=== PATIENT | female | born 1970 | race Caucasian/White ===

== ENCOUNTER 2018-09-17 20:36 | Emergency (ER) | payer SELFPAY ==
[~2018-09-17] VITALS: Ht 170.2 cm; Wt 55.8 kg
[~2018-09-17 20:36] MED LIST: ALPRAZOLAM1 MG PO; BENTYL20 MG PO; CARAFATE1 GM PO; CEFDINIR125 MG/5 M PO; CITALOPRAM HBR10 MG PO; ENTOCORT EC3 M1 PO; ERY-TAB333 MG PO; HYOSCYAMINE PO; METAXALONE800 MG PO; NEXIUM40 MG PO; NORCO 10-325 T1 EACH PO; PREDNISONE20 MG PO; PREVACID30 M2 PO; PROGESTERONE; PROMETHAZINE HC25 M1 PO; TYLENOL WITH C1 EACH PO; Z.0.AMITRIPTYLINE H1 PO; Z.0.APRISO0.375 GM; Z.0.FLAGYL500 MG PO; Z.0.HYOMAX-SL0.125 M; Z.0.LEVAQUIN500 MG PO; Z.0.NORCO 5-325 TA1 PO; Z.0.PHENERGAN SUPP25 RC; Z.0.PHENERGAN25 M1 PO; Z.0.PROTONIX40 MG; Z.0.REGLAN5 MG PO; Z.0.ZOFRAN4 MG PO
--- OUTSIDE RECORDS SUMMARY | 2018-09-17 20:40 | XMS REPORT | Continuity of Care Document ---
Author Author [facility] [employer] [facility] Interface Address Unknown Phone Unavailable Problems Problem Status Onset Date Classification Date Reported Comments Source LAB Active 04/22/2014 [facility] GASTRIC PARESIS, N/V AND DEHYDRATION Active 07/08/2013 [facility] History of hysterectomy Resolved 09/09/2003 Problem 04/25/2014 [facility] Dumping syndrome Active Problem 04/25/2014 [facility] Medications Medication Details Route Status Patient Instructions Ordering Provider Order Date Source Protonix 40 mg, 1 tab, Route: PO, Drug form: ECTAB, Before Dinner, Start date: 07/10/13 16:30:00, Duration: 30 day, Stop date: 08/08/13 16:30:00Tablet should not be chewed or crushed. (Same as: Protonix) Inactive Blas 07/10/2013 [facility] Phenergan + Sodium Chloride 0.9% IV 50 mL 12.5 mg, 0.5 mL, Route: IVPB, Q6H, Dosing Weight 61.364, kg, PRN Nausea & Vomiting, Start date: 07/09/13 23:16:00, Duration: 30 day, Stop date: 08/08/13 23:15:00Do not give IV push. (Same as: Phenergan) No Longer Active Bill 07/10/2013 [facility] morphine Sulfate 1 mg, 0.5 mL, Route: IV, Drug form: INJ, Q3H, Dosing Weight 61.364, kg, PRN as needed for pain, Start date: 07/09/13 15:50:00, Duration: 30 day, Stop date: 08/08/13 15:49:00(Same as:MORPhine Sulfate) No Longer Active Ahmed 07/09/2013 [facility] Phenergan + Sodium Chloride 0.9% IV 50 mL 12.5 mg, 0.5 mL, Route: IVPB, Drug form: INJ, ONCE, Dosing Weight 61.364, kg, PRN Nausea & Vomiting, Priority: STAT, Start date: 07/09/13 13:00:00, Stop date: 08/08/13 14:59:00Do not give IV push. (Same as: Phenergan) Inactive Ahmed 07/09/2013 [facility] [place] 7.5/325 oral tablet 1 tab, PO, Q4H, PRN, for pain, Substitution Allowed, Maintenance, TAB No Longer Active 07/08/2013 [facility] promethazine 25 mg oral tablet 25 mg, 1 tab, PO, Q6H, PRN, 15 tab, Nausea & Vomiting, Substitution Allowed, TAB Active 07/08/2013 [facility] Nexium 40 mg oral delayed release capsule 40 mg, 1 cap, PO, Daily, 30 cap, Substitution Allowed Active 07/08/2013 [facility] Protonix 40 mg, Route: IVP, Drug form: INJ, Before Dinner, Dosing Weight 63.182, kg, Patient is NPO, Start date: 07/08/13 16:30:00, Duration: 30 day, Stop date: 08/06/13 16:30:00For IV push reconstitute with 10 ml 0.9% sodium chloride and push over 2 minutes. (Same as: Protonix) No Longer Active [facility] 07/08/2013 [facility] Flagyl 500 mg, 100 mL, Route: IVPB, Drug form: INJ, ABXQ6H, Dosing Weight 61.364, kg, Start date: 07/08/13 16:00:00, Duration: 30 day, Stop date: 08/07/13 10:00:00(Same as: Flagyl) Avoid alcohol. No Longer Active [facility] 07/08/2013 [facility] erythromycin + Sodium Chloride 0.9% IV 100 mL 200 mg, Route: IV, [id number], Dosing Weight 61.364, kg, Start date: 07/08/13 14:00:00, Duration: 30 day, Stop date: 08/06/13 21:30:00(Same as: erythromycin lactobionate) No Longer Active Bill 07/08/2013 [facility] Zofran 4 mg, 2 mL, Route: IVP, Drug form: INJ, Q6H, PRN Nausea & Vomiting, Start date: 07/08/13 11:18:00, Duration: 30 day, Stop date: 08/07/13 11:17:00(Same as: Zofran) No Longer Active Figueredo 07/08/2013 [facility] normal saline 0.9% IV 1,000 mL 1,000 mL, Rate: 100 ml/hr, Infuse over: 10 hr, Route: IV, Dosing Weight 63.182 kg, Total Volume: 1,000, Start date: 07/08/13 10:43:00, Duration: 30 day, Stop date: 08/07/13 10:42:00 No Longer Active Blas 07/08/2013 [facility] Allergies, Adverse Reactions, Alerts Substance Category Reaction Severity Reaction type Status Date Reported Comments Source NSAIDs drug allergy Allergy [facility] Immunizations Immunization Date Given Site Status Last Updated Comments Source Results Order Name Results Value Reference Range Date Interpretation Comments Source TOXICOLOGY Phenytoin Free 1.38 ug/ml 1.00 - 2.00 04/22/2014 [facility] CHEMISTRY Globulin 3.1 g/dL 2.0 - 4.0 07/09/2013 Normal [facility] CHEMISTRY AGAP 12.5 meq/L 10.0 - 20.0 07/09/2013 Normal [facility] CHEMISTRY B/C Ratio 10 6 - 25 07/09/2013 Normal [facility] CHEMISTRY A/G Ratio 1.1 0.7 - 1.6 07/09/2013 Normal [facility] CHEMISTRY eGFR 108 mL/min/1.73m2 07/09/2013 1Result Comment: The eGFR is calculated using the CKD-EPI formula. In most young, healthy individuals the eGFR will be >90 mL/min/1.73m2. The eGFR declines with age. An eGFR of 60-89 may be normal in some populations, particularly the elderly, for whom the CKD-EPI formula has not been extensively validated. Use of the eGFR is not recommended in the following populations: Individuals with unstable creatinine concentrations, including patients and those with serious co-morbid conditions. Patients with extremes in muscle mass or diet. The data above are obtained from the National Kidney Disease Education Program (NKDEP) which additionally recommends that when the eGFR is used in patients with extremes of body mass index for purposes of drug dosing, the eGFR should be multiplied by the estimated BMI. [facility] CHEMISTRY ASPARTATE TRANSAMINASE 18 unit/L 0 - 37 07/09/2013 Normal [facility] CHEMISTRY Creatinine Lvl 0.7 mg/dL 0.5 - 1.4 07/09/2013 Normal [facility] CHEMISTRY BUN 7 mg/dL 7 - 22 07/09/2013 Normal [facility] CHEMISTRY Glucose Lvl 97 mg/dL 70 - 99 07/09/2013 Normal 2Interpretive Data: Adult reference range values reflect the clinical guidelines of the [place] [employer]. [facility] CHEMISTRY Alk Phos 84 unit/L 39 - 136 07/09/2013 Normal [facility] CHEMISTRY Bili Total 0.2 mg/dL 0.2 - 1.3 07/09/2013 Normal [facility] CHEMISTRY ALANINE AMINOTRANSFERASE 13 unit/L 0 - 65 07/09/2013 Normal [facility] CHEMISTRY CO2 26 meq/L 24 - 32 07/09/2013 Normal [facility] CHEMISTRY Albumin Lvl 3.4 g/dL 3.5 - 5.0 07/09/2013 LOW [facility] CHEMISTRY Calcium Lvl 8.6 mg/dL 8.5 - 10.5 07/09/2013 Normal [facility] CHEMISTRY Total Protein 6.5 g/dL 6.4 - 8.4 07/09/2013 Normal [facility] CHEMISTRY Sodium Lvl 145 meq/L 135 - 145 07/09/2013 Normal [facility] CHEMISTRY Potassium Lvl 3.5 meq/L 3.5 - 5.1 07/09/2013 Normal [facility] CHEMISTRY Chloride Lvl 110 meq/L 95 - 109 07/09/2013 HI [facility] HEMATOLOGY MPV 8.2 fL 7.4 - 10.4 07/09/2013 Normal [facility] HEMATOLOGY Platelet 229 K/CMM 133 - 450 07/09/2013 Normal [facility] HEMATOLOGY RDW 13.4 % 11.5 - 14.5 07/09/2013 Normal [facility] HEMATOLOGY Hct 32.2 % 36.0 - 48.0 07/09/2013 LOW [facility] HEMATOLOGY MCV 96.2 fL 81.0 - 99.0 07/09/2013 Normal [facility] HEMATOLOGY MCH 31.4 pg 27.0 - 31.0 07/09/2013 HI [facility] HEMATOLOGY RBC X 10x6 3.35 M/CMM 4.20 - 5.40 07/09/2013 LOW [facility] HEMATOLOGY Hgb 10.5 g/dL 12.0 - 16.0 07/09/2013 LOW [facility] HEMATOLOGY MCHC 32.7 g/dL 32.0 - 36.0 07/09/2013 Normal [facility] HEMATOLOGY WBC X 10x3 9.5 K/CMM 3.7 - 10.4 07/09/2013 Normal [facility] HEMATOLOGY Monocytes # 1.0 K/CMM 0.0 - 0.8 07/09/2013 HI [facility] HEMATOLOGY Lymphocytes # 2.9 K/CMM 1.0 - 5.5 07/09/2013 Normal [facility] HEMATOLOGY Eosinophils # 0.0 K/CMM 0.0 - 0.5 07/09/2013 Normal [facility] HEMATOLOGY Basophils # 0.0 K/CMM 0.0 - 0.2 07/09/2013 Normal [facility] HEMATOLOGY Monocytes 10.2 % 2.0 - 12.0 07/09/2013 Normal [facility] HEMATOLOGY Eosinophils 0.2 % 0.0 - 4.0 07/09/2013 Normal [facility] HEMATOLOGY Basophils 0.3 % 0.0 - 1.0 07/09/2013 Normal [facility] HEMATOLOGY Lymphocytes 30.8 % 20.0 - 40.0 07/09/2013 Normal [facility] HEMATOLOGY Segs-Bands # 5.6 K/CMM 1.5 - 8.1 07/09/2013 Normal [facility] HEMATOLOGY Segs 58.5 % 45.0 - 75.0 07/09/2013 Normal [facility] HEMATOLOGY INR 0.93 0.85 - 1.17 07/08/2013 Normal 3Interpretive Data: RECOMMENDED RANGES FOR PROTIME INR: 2.0-3.0 for most medical and surgical thromboembolic states. 2.5-3.5 for artificial heart valves and recurrent embolism. INR SHOULD BE USED ONLY FOR PATIENTS ON STABLE ANTICOAGULANT THERAPY. [facility] HEMATOLOGY PROTIME 12.4 s 12.0 - 14.7 07/08/2013 Normal [facility] Vital Signs Vital Sign Value Date Comments Source Diastolic (mm Hg) 82 07/10/2013 [facility] Systolic (mm Hg) 127 07/10/2013 [facility] Respitory Rate 18 07/10/2013 [facility] Heart Rate 68 07/10/2013 [facility] Temperature Oral (F) 98.5 F 07/10/2013 [facility] Heart Rate 68 07/10/2013 [facility] Respitory Rate 18 07/10/2013 [facility] Temperature Oral (F) 98.2 F 07/10/2013 [facility] Systolic (mm Hg) 114 07/10/2013 [facility] Diastolic (mm Hg) 71 07/10/2013 [facility] Diastolic (mm Hg) 88 07/10/2013 [facility] Systolic (mm Hg) 136 07/10/2013 [facility] Respitory Rate 18 07/10/2013 [facility] Heart Rate 72 07/10/2013 [facility] Temperature Oral (F) 99.5 F 07/10/2013 [facility] Weight 61.364 07/08/2013 [facility] Height 170.18 cm 07/08/2013 [facility] Encounters Location Location Details Encounter Type Encounter Number Reason For Visit Attending Provider ADM Date DC Date Status Source [facility] [id number] GASTRIC PARESIS, N/V AND DEHYDRATION RAFA FIGUEREDO 07/08/2013 07/10/2013 Active [facility] Patient [id number] Blayne Shah 04/22/2014 04/23/2014 [facility] Procedures Procedure Code Date Perfomer Comments Source
--- OUTSIDE RECORDS SUMMARY | 2018-09-17 20:40 | XMS REPORT | Summary of Care ---
Author Organization Unknown Address Unknown Phone Unavailable Encounter [facility] Carola_hector(PATO) [id number] Date(s): 04/22/14 - 04/22/[address] Discharge Disposition: Home Physician Attending: Blayne Shah MD Reason for Visit LAB Problem List Condition Effective Dates Status Health Status Informant Dumping Active syndrome(Confirmed) History of 09/09/03 Resolved hysterectomy(Confirm ed) Allergies, Adverse Reactions, Alerts Substance Reaction Severity Status NSAIDs Active Medications No data available for this section Results TOXICOLOGY Most recent to 1 oldest [Reference Range]: Phenytoin Free 1.38 ug/ml [1.00-2.00 ug/ml] (04/22/14 6:30 AM) Medications Administered During Your Visit No data available for this section Immunizations No data available for this section
--- OUTSIDE RECORDS SUMMARY | 2018-09-17 20:40 | XMS REPORT ---
[facility] Address Unknown Phone Unavailable Care Team Providers Care Psych Np Name Role Phone Unavailable Unavailable Payers Payer Name Policy Type Policy Number Effective Date Expiration Date Problems This patient has no known problems. Allergies, Adverse Reactions, Alerts Allergy Name Allergy Type Status Severity Reaction(s) Onset Date Inactive Date Treating Clinician Comments NSAIDS (Non-Steroidal Anti-Inflamma DA Active AL 2018-06-14 00:00:00 aspirin DA Active AL 2018-06-14 00:00:00 zolpidem DA Active 2018-06-14 00:00:00 meperidine DA Active SV 2018-06-14 00:00:00 ondansetron DA Active MO 2018-06-14 00:00:00 NSAIDS (Non-Steroidal Anti-Inflamma DA Active AL 2018-05-16 00:00:00 aspirin DA Active AL 2018-05-16 00:00:00 zolpidem DA Active SV 2018-05-16 00:00:00 meperidine DA Active SV 2018-05-16 00:00:00 ondansetron DA Active MO 2018-05-16 00:00:00 NSAIDS (Non-Steroidal Anti-Inflamma DA Active AL 2018-04-30 00:00:00 aspirin DA Active AL 2018-04-30 00:00:00 zolpidem DA Active SV 2018-04-30 00:00:00 meperidine DA Active SV 2018-04-30 00:00:00 ondansetron DA Active MO 2018-04-30 00:00:00 Medications This patient has no known medications. Encounters Start Date/Time End Date/Time Encounter Type Admission Type Attending [facility] Care Facility Care Department Encounter ID 2018-02-25 13:16:05 2018-02-25 13:16:05 Outpatient [facility] [id number] 2018-01-10 00:00:00 2018-01-10 00:00:00 Outpatient [facility] [id number] 2018-01-03 00:00:00 2018-01-03 00:00:00 Outpatient [facility] [id number] 2018-01-03 00:00:00 2018-01-03 00:00:00 Outpatient [facility] [id number] 2018-01-02 00:00:00 2018-01-02 00:00:00 Outpatient [facility] [id number] 2017-12-27 00:00:00 2017-12-27 00:00:00 Outpatient [facility] [id number] 2017-12-26 00:00:00 2017-12-26 00:00:00 Outpatient [facility] [id number] 2017-12-20 00:00:00 2017-12-20 00:00:00 Outpatient [facility] [id number] 2017-12-19 00:00:00 2017-12-19 00:00:00 Outpatient [facility] [id number] 2017-12-13 00:00:00 2017-12-13 00:00:00 Outpatient [facility] [id number] 2017-12-12 00:00:00 2017-12-12 00:00:00 Outpatient [facility] [id number] 2017-12-06 00:00:00 2017-12-06 00:00:00 Outpatient [facility] [id number] 2017-12-03 13:19:51 2017-12-03 13:19:51 Outpatient [facility] [id number] 2017-11-29 00:00:00 2017-11-29 00:00:00 Outpatient [facility] [id number] 2017-11-28 00:00:00 2017-11-28 00:00:00 Outpatient [facility] [id number] 2017-11-20 13:55:34 2017-11-20 13:55:34 Outpatient [facility] [id number] 2017-09-27 13:46:19 2017-09-27 13:46:19 Outpatient [facility] [id number] 2017-08-08 00:00:00 2017-08-08 00:00:00 Outpatient [facility] [id number] 2017-07-08 08:56:16 2017-07-08 08:56:16 Outpatient [facility] [id number] 2017-07-05 09:32:15 2017-07-05 09:32:15 Outpatient [facility] [id number] 2017-05-08 00:00:00 2017-05-08 00:00:00 Outpatient [facility] [id number]
--- OUTSIDE RECORDS SUMMARY | 2018-09-17 20:40 | XMS REPORT | CCD ---
Author Author Auto Generated Organization [facility] Address Unknown Phone Unavailable Care Team Providers Care Record Producer Name Role Phone Jluis Figueredo RP Allergies, Adverse Reactions, Alerts Substance Reaction Status NSAIDs Active Problem List Condition Effective Dates Status Dumping syndrome Active History of hysterectomy 09/09/2003 Resolved Medications Medication Instructions Start Date End Date Status Zofran 4 mg, 2 mL, Route: IVP, Drug form: 07/08/2013 07/10/2013 Discontinued INJ, Q6H, PRN Nausea & Vomiting, Start date: 07/08/13 11:18:00, Duration: 30 day, Stop date: 08/07/13 11:17:00(Same as: Zofran) normal saline 0.9% 1,000 mL, Rate: 100 ml/hr, Infuse 07/08/2013 07/10/2013 Discontinued IV 1,000 mL over: 10 hr, Route: IV, Dosing Weight 63.182 kg, Total Volume: 1,000, Start date: 07/08/13 10:43:00, Duration: 30 day, Stop date: 08/07/13 10:42:00 Flagyl 500 mg, 100 mL, Route: IVPB, Drug 07/08/2013 07/10/2013 Discontinued form: INJ, ABXQ6H, Dosing Weight 61.364, kg, Start date: 07/08/13 16:00:00, Duration: 30 day, Stop date: 08/07/13 10:00:00(Same as: Flagyl) Avoid alcohol. Phenergan + Sodium 12.5 mg, 0.5 mL, Route: IVPB, Q6H, 07/09/2013 07/10/2013 Discontinued Chloride 0.9% IV 50 Dosing Weight 61.364, kg, PRN mL Nausea & Vomiting, Start date: 07/09/13 23:16:00, Duration: 30 day, Stop date: 08/08/13 23:15:00Do not give IV push. (Same as: Phenergan) morphine Sulfate 1 mg, 0.5 mL, Route: IV, Drug form: 07/09/2013 07/10/2013 Discontinued INJ, Q3H, Dosing Weight 61.364, kg, PRN as needed for pain, Start date: 07/09/13 15:50:00, Duration: 30 day, Stop date: 08/08/13 15:49:00(Same as:MORPhine Sulfate) Protonix 40 mg, 1 tab, Route: PO, Drug form: 07/10/2013 07/10/2013 Canceled ECTAB, Before Dinner, Start date: 07/10/13 16:30:00, Duration: 30 day, Stop date: 08/08/13 16:30:00Tablet should not be chewed or crushed.(Same as: Protonix) [place] 7.5/325 oral 1 tab, PO, Q4H, PRN, for pain, 07/08/2013 07/10/2013 Discontinued tablet Substitution Allowed, Maintenance, TAB promethazine 25 mg 25 mg, 1 tab, PO, Q6H, PRN, 15 tab, 07/08/2013 Ordered oral tablet Nausea & Vomiting, Substitution Allowed, TAB Nexium 40 mg oral 40 mg, 1 cap, PO, Daily, 30 cap, 07/08/2013 Ordered delayed release Substitution Allowed capsule Phenergan + Sodium 12.5 mg, 0.5 mL, Route: IVPB, Drug 07/09/2013 07/09/2013 Completed Chloride 0.9% IV 50 form: INJ, ONCE, Dosing Weight mL 61.364, kg, PRN Nausea & Vomiting, Priority: STAT, Start date: 07/09/13 13:00:00, Stop date: 08/08/13 14:59:00Do not give IV push. (Same as: Phenergan) erythromycin + 200 mg, Route: IV, [id number], Dosing 07/08/2013 07/10/2013 Discontinued Sodium Chloride 0.9% Weight 61.364, kg, Start date: IV 100 mL 07/08/13 14:00:00, Duration: 30 day, Stop date: 08/06/13 21:30:00(Same as: erythromycin lactobionate) Protonix 40 mg, Route: IVP, Drug form: INJ, 07/08/2013 07/10/2013 Discontinued Before Dinner, Dosing Weight 63.182, kg, Patient is NPO, Start date: 07/08/13 16:30:00, Duration: 30 day, Stop date: 08/06/13 16:30:00For IV push reconstitute with 10 ml 0.9% sodium chloride and push over 2 minutes. (Same as: Protonix) Vital Signs Most recent to oldest [Reference Range]: 1 2 3 Height 170.18 cm (07/08/2013 09:11:00) Temperature Oral [96.4-99.1 DegF] 98.5 DegF (07/10/2013 08:00:00) 98.2 DegF (07/10/2013 04:49:00) 99.5 DegF *HI* (07/09/2013 19:55:00) Systolic Blood Pressure [90-140 mmHg] 127 mmHg (07/10/2013 08:00:00) 114 mmHg (07/10/2013 04:49:00) 136 mmHg (07/09/2013 19:55:00) Diastolic Blood Pressure [60-90 mmHg] 82 mmHg (07/10/2013 08:00:00) 71 mmHg (07/10/2013 04:49:00) 88 mmHg (07/09/2013 19:55:00) Respiratory Rate [14-20 BRMIN] 18 BRMIN (07/10/2013 08:00:00) 18 BRMIN (07/10/2013 04:49:00) 18 BRMIN (07/09/2013 19:55:00) Peripheral Pulse Rate [60-100 bpm] 68 bpm (07/10/2013 08:00:00) 68 bpm (07/10/2013 04:49:00) 72 bpm (07/09/2013 19:55:00) Weight 61.364 kg (07/08/2013 09:11:00) Results CHEMISTRY Most recent to oldest [Reference Range]: 1 Sodium Lvl [135-145 mEq/L] 145 mEq/L (07/09/2013 06:15:00) Potassium Lvl [3.5-5.1 mEq/L] 3.5 mEq/L (07/09/2013 06:15:00) Chloride Lvl [95-109 mEq/L] 110 mEq/L *HI* (07/09/2013 06:15:00) CO2 [24-32 mEq/L] 26 mEq/L (07/09/2013 06:15:00) AGAP [10.0-20.0 mEq/L] 12.5 mEq/L (07/09/2013 06:15:00) Creatinine Lvl [0.5-1.4 mg/dL] 0.7 mg/dL (07/09/2013 06:15:00) eGFR 108 mL/min/1.73m2 1 *NA* (07/09/2013 06:15:00) BUN [7-22 mg/dL] 7 mg/dL (07/09/2013 06:15:00) B/C Ratio [6-25] 10 (07/09/2013 06:15:00) Glucose Lvl [70-99 mg/dL] 97 mg/dL 2 (07/09/2013 06:15:00) Total Protein [6.4-8.4 g/dL] 6.5 g/dL (07/09/2013 06:15:00) Albumin Lvl [3.5-5.0 g/dL] 3.4 g/dL *LOW* (07/09/2013:15:00) Globulin [2.0-4.0 g/dL] 3.1 g/dL (07/09/2013 06:15:00) A/G Ratio [0.7-1.6] 1.1 (07/09/2013:15:00) Calcium Lvl [8.5-10.5 mg/dL] 8.6 mg/dL (07/09/2013 06:15:00) ALT [0-65 unit/L] 13 unit/L (07/09/2013 06:15:00) AST [0-37 unit/L] 18 unit/L (07/09/2013 06:15:00) Alk Phos [39-136 unit/L] 84 unit/L (07/09/2013 06:15:00) Bili Total [0.2-1.3 mg/dL] 0.2 mg/dL (07/09/2013 06:15:00) 1Result Comment: The eGFR is calculated using [...] from the National Kidney Disease Education Program ( NKDEP) which additionally recommends that when the eGFR is used in patients with extremes of body mass index for purposes of drug dosing, the eGFR should be mul tiplied by the estimated BMI. 2Interpretive Data: Adult reference range values reflect the clinical guidelines of the [place] Diabetes Association. HEMATOLOGY Most recent to oldest [Reference Range]: 1 WBC [3.7-10.4 K/CMM] 9.5 K/CMM (07/09/2013 06:15:00) RBC [4.20-5.40 M/CMM] 3.35 M/CMM *LOW* (07/09/2013 06:15:00) Hgb [12.0-16.0 g/dL] 10.5 g/dL *LOW* (07/09/2013 06:15:00) Hct [36.0-48.0 %] 32.2 % *LOW* (07/09/2013 06:15:00) MCV [81.0-99.0 fL] 96.2 fL (07/09/2013 06:15:00) MCH [27.0-31.0 pg] 31.4 pg *HI* (07/09/2013 06:15:00) MCHC [32.0-36.0 g/dL] 32.7 g/dL (07/09/2013 06:15:00) RDW [11.5-14.5 %] 13.4 % (07/09/2013 06:15:00) Platelet [133-450 K/CMM] 229 K/CMM (07/09/2013 06:15:00) MPV [7.4-10.4 fL] 8.2 fL (07/09/2013 06:15:00) Segs [45.0-75.0 %] 58.5 % (07/09/2013 06:15:00) Lymphocytes [20.0-40.0 %] 30.8 % (07/09/2013 06:15:00) Monocytes [2.0-12.0 %] 10.2 % (07/09/2013 06:15:00) Eosinophils [0.0-4.0 %] 0.2 % (07/09/2013 06:15:00) Basophils [0.0-1.0 %] 0.3 % (07/09/2013 06:15:00) Segs-Bands # [1.5-8.1 K/CMM] 5.6 K/CMM (07/09/2013 06:15:00) Lymphocytes # [1.0-5.5 K/CMM] 2.9 K/CMM (07/09/2013 06:15:00) Monocytes # [0.0-0.8 K/CMM] 1.0 K/CMM *HI* (07/09/2013 06:15:00) Eosinophils # [0.0-0.5 K/CMM] 0.0 K/CMM (07/09/2013 06:15:00) Basophils # [0.0-0.2 K/CMM] 0.0 K/CMM (07/09/2013 06:15:00) PT [12.0-14.7 seconds] 12.4 seconds (07/08/2013 16:25:00) INR [0.85-1.17] 0.93 3 (07/08/2013 16:25:00) 3Interpretive Data: RECOMMENDED RANGES FOR PROTIME INR: 2.0-3.0 for most medical and surgical thromboembolic states. 2.5-3.5 for artificial heart valves and recurrent embolism. INR SHOULD BE USED ONLY FOR PATIENTS ON STABLE ANTICOAGULANT THERAPY.
--- OUTSIDE RECORDS SUMMARY | 2018-09-17 20:40 | XMS REPORT | CCD ---
Author Author Auto Generated Organization [facility] Address Unknown Phone Unavailable Care Team Providers Care Wholesaler Name Role Phone Jluis Figueredo RP Allergies, [...] not be chewed or crushed.(Same as: Protonix) [place] 7.5/325 oral 1 tab, PO, Q4H, PRN, [...] Phenergan) erythromycin + 200 mg, Route: IV, [id number], Dosing 07/08/2013 07/10/2013 Discontinued Sodium Chloride 0.9% [...] values reflect the clinical guidelines of the [place] Diabetes [employer]. HEMATOLOGY Most recent to oldest [...]
--- OUTSIDE RECORDS SUMMARY | 2018-09-17 20:40 | XMS REPORT | CCD ---
Author Author Auto Generated Organization [facility] Address Unknown Phone Unavailable Care Team Providers Care Communication Instructor Name Role Phone Jluis Figueredo RP Allergies, [...] not be chewed or crushed.(Same as: Protonix) [place] 7.5/325 oral 1 tab, PO, Q4H, PRN, [...] Phenergan) erythromycin + 200 mg, Route: IV, [id number], Dosing 07/08/2013 07/10/2013 Discontinued Sodium Chloride 0.9% [...] values reflect the clinical guidelines of the [place] Diabetes Association. HEMATOLOGY Most recent to oldest [...]
[2018-09-17] MEDS ORDERED: PROMETHAZINE HCL (IM) 25 MG/ML VIAL IM ONE (21:00)
[2018-09-17] MEDS ORDERED: DICYCLOMINE HCL 20 MG/2 ML VIAL IM ONE (21:00)
[2018-09-17] MEDS ORDERED: SODIUM CHLORIDE 0.9% 1000ML 1,000 ML IV ONE (21:00)
[2018-09-17 22:12] LABS: BASOPHILS # (AUTO) 0.1 (0.0-0.1); BASOPHILS % 1.1 % (0.0-1.0); EOSINOPHILS # (AUTO) 0.4 (0.0-0.4); EOSINOPHILS % 4.6 % (0.0-6.0); HEMATOCRIT 36.8 % (34.2-44.1); HEMOGLOBIN 12.8 g/dL (12.0-16.0); LYMPHOCYTES # (AUTO) 3.4 (1.0-3.2); LYMPHOCYTES % 35.4 % (18.0-39.1); MEAN CORPUSCULAR HEMOGLOBIN 31.6 pg (28-32); MEAN CORPUSCULAR HGB CONC 34.8 g/dL (31-35); MEAN CORPUSCULAR VOLUME 90.9 fL (81-99); MONOCYTES # (AUTO) 0.7 (0.2-0.8); NEUTROPHILS # (AUTO) 4.9 (2.1-6.9); NEUTROPHILS % 51.6 % (38.7-80.0); PLATELET COUNT 274 x10e3/uL (140-360); RED BLOOD COUNT 4.05 x10e6/uL (3.6-5.1); RED CELL DISTRIBUTION WIDTH 13.6 % (11.7-14.4)
[2018-09-17 22:34] LABS: ALBUMIN 3.9 g/dL (3.5-5.0); ALBUMIN/GLOBULIN RATIO 1.5 (0.8-2.0); ALKALINE PHOSPHATASE 84 IU/L (40-150); AMYLASE 56 U/L (25-125); ANION GAP 15.5 mmol/L (8-16); BLOOD UREA NITROGEN 9 mg/dL (7-26); BUN/CREATININE RATIO 12 (6-25); CARBON DIOXIDE 20 mmol/L (22-29); CHLORIDE 105 mmol/L (98-107); CREATININE, SERUM 0.74 mg/dL (0.57-1.11); EST GLOMERULAR FILTRATION RATE > 60 ML/MIN (60-); GLUCOSE 102 mg/dL (74-118); LIPASE 20 U/L (8-78); POTASSIUM 3.5 mmol/L (3.5-5.1); SODIUM 137 mmol/L (136-145)
[2018-09-17 22:37] LABS: BILIRUBIN,URINE NEGATIVE (NEGATIVE); CLARITY,URINE CLEAR (CLEAR); COLOR,URINE YELLOW (YELLOW); KETONES,URINE NEGATIVE (NEGATIVE); LEUKOCYTE ESTERASE ,URINE NEGATIVE (NEGATIVE); NITRITE,URINE NEGATIVE (NEGATIVE); PROTEIN,URINE DIPSTICK NEGATIVE (NEGATIVE); URINE UROBILINOGEN 0.2 mg/dL (0.2 - 1)
[2018-09-17 22:38] LABS: BACTERIA,URINE RARE /HPF; EPITHELIAL CELLS,URINE FEW /LPF; WBC,URINE (MAN) 0-5 /HPF (0-5)
[2018-09-17 22:38] LABS: ALANINE AMINOTRANSFERASE < 6 IU/L (0-55)
== END 2018-09-17 23:14 | disposition home or self-care (01) ==
LOC: ER 20:36
DX: R10.9 Unspecified abdominal pain (principal); R11.2 Nausea with vomiting, unspecified; R19.7 Diarrhea, unspecified; F41.9 Anxiety disorder, unspecified; F43.10 Post-traumatic stress disorder, unspecified; F17.210 Nicotine dependence, cigarettes, uncomplicated
CPT/HCPCS: 36415; 80053; 81001; 82150; 83690; 85025; 99284; J2550; J7030; J0500